=== PATIENT | male | born 1980 | race Caucasian/White ===

== ENCOUNTER 2022-09-17 15:17 | Emergency (ER) | payer OTHER ==
[~2022-09-17] VITALS: Ht 182.9 cm; Wt 69.9 kg
--- NOTE | 2022-09-17 16:30 | NUR ---
RECEIVED PT 42 YRS MALE CAME BY ORQUIDEA AND KIANNA FOR MEDICALE VAHE O.K. TO FRIEDA C/O EPGASTRIC PAIN
--- NOTE | 2022-09-17 16:45 | NUR ---
[employer] AT BED SIDE [facility] ([facility]) OFFICER VANCE # [id number] AND OFFICER LOPEZ # [id number]
--- NOTE | 2022-09-17 17:00 | NUR ---
AWAITING DIPOSITION OF PATIENT BY .
--- NOTE | 2022-09-17 17:38 | NUR ---
PT ASLEEPY NO COMPLAIN
--- NOTE | 2022-09-17 17:40 | NUR ---
BLOOD DROW BY LAB TACH
--- NOTE | 2022-09-17 18:00 | NUR ---
X-RAY DONE AT BED SIDE
[2022-09-17 18:15] LABS: BASOPHILS % (AUTO) 0.7 % (0.0-2.0); EOSINOPHILS % (AUTO) 1.1 % (0.0-6.0); HEMATOCRIT 41 % (39-51); HEMOGLOBIN 13.7 g/dL (13.5-17.5); LYMPHOCYTES # (AUTO) 1.5 K/uL (0.8-4.8); LYMPHOCYTES % (AUTO) 23.5 % (20.0-44.0); MEAN CORPUSCULAR HGB CONC 34 g/dl (31.0-36.0); MEAN CORPUSCULAR VOLUME 84 fL (80-96); MONOCYTES # (AUTO) 0.4 K/uL (0.1-1.30); MONOCYTES % (AUTO) 6.7 % (2.0-12.0); NEUTROPHILS # (AUTO) 4.3 K/uL (1.8-8.9); PLATELET COUNT (AUTO) 305 K/uL (150-450); RED BLOOD CELL COUNT(AUTO) 4.83 MIL/uL (4.5-6.0); WHITE BLOOD COUNT (AUTO) 6.4 K/uL (4.3-11.0)
--- NOTE | 2022-09-17 18:35 | NUR ---
VITAL SIGNS UPDATED.
[2022-09-17 18:46] LABS: ALANINE AMINOTRANSFERASE 17 U/L (12-78); ALBUMIN 3.3 g/dL (3.4-5.0); ALKALINE PHOSPHATASE 108 U/L (46-116); ASPARTATE AMINOTRANSFERASE 17 U/L (15-37); BILIRUBIN,DIRECT 0.1 mg/dL (0.0-0.2); BILIRUBIN,TOTAL 0.4 mg/dL (0.2-1.0); CALCIUM, SERUM 8.7 mg/dL (8.5-10.1); CARBON DIOXIDE 29 mmol/L (21-32); CHLORIDE 102 mmol/L (98-107); CREATININE 0.8 mg/dL (0.6-1.3); GLUCOSE 230 mg/dL (74-106); POTASSIUM 3.5 mmol/L (3.5-5.1); SODIUM SERUM 138 mmol/L (136-145); TOTAL PROTEIN, SERUM 6.8 g/dL (6.4-8.2); UREA NITROGEN, BLOOD 13 mg/dL (7-18)
--- NOTE | 2022-09-17 19:35 | NUR ---
HAND OFF MANSOOR RN
--- NOTE | 2022-09-17 20:40 | NUR ---
Patient discharged in stable condition. Written and verbal after care instructions given to [employer]. Patient is cleared and ok to book.
[2022-09-17 20:50] VITALS: BP 121/80
== END 2022-09-17 20:51 ==
LOC: ER 15:30
DX: R07.89 Other chest pain (principal); I10 Essential (primary) hypertension; E11.9 Type 2 diabetes mellitus without complications
CPT/HCPCS: 36415; 71045-TC; 80048-TC; 80076-TC; 84484-TC; 85025-TC